=== PATIENT | female | born 1980 | race Caucasian/White ===

== ENCOUNTER 2016-08-24 15:12 | Inpatient (IN) | payer OTHER ==
--- NOTE | 2016-08-24 15:43 | EDPHY ---
H & P Time Seen by Provider: 08/24/16 15:31 HPI/ROS: Chief complaint. high blood pressure after delivery HPI. Patient is a 36-year-old female transferred by ambulance from [place]. delivery 6 days ago. Did have some spinal anesthesia. Right neck pain for 5 days at the patient feels as muscular. Increased blood pressure last night to 180/125. She took labetalol 200 mg this morning at the recommendation of her grinding wheel facer. She also has some pain under the right clavicle. LP was attempted 3 times in [place] without success. Patient has baseline history of hypertension and had been taking lisinopril prior to her and then was switched to labetalol. She had previous preeclampsia with her 1st . She is 2 para 2. She is breast feeding. She denies fever, chest pain, shortness of breath, vomiting or diarrhea. ROS Constitutional. High blood pressure Eyes. no problems with vision ENT. no sore throat, no nasal drainage Cardiovascular. no chest pain Respiratory. no shortness of breath, no cough Abdominal. no abdominal pain, no nausea/vomiting, no diarrhea . no problems urinating MS. Right-sided neck pain Skin. no rash Lymph. no swollen glands Neuro. no headache, no dizziness, no difficulty walking or with speech Past Medical/Surgical History: Hypertension Social History: , nonsmoker, no alcohol Smoking Status: Never smoked Physical Exam: General Appearance: Alert well-developed female mild distress vital signs significant for blood pressure 158/122 Eyes: Pupils equal and round no pallor or injection. ENT, Mouth: Mucous membranes are moist. Respiratory: There are no retractions, lungs are clear to auscultation. Cardiovascular: Regular rate and rhythm. Gastrointestinal: Abdomen is soft and nontender, no masses, bowel sounds normal. Neurological: Awake and alert, sensory and motor exams grossly normal. Skin: Warm and dry, no rashes. Musculoskeletal: Neck is supple. Tenderness to the right side of her neck. Extremities symmetrical, full range of motion. Psychiatric: Patient is oriented X 3, there is no agitation. Constitutional: Initial Vital Signs Temperature (C) 36.7 C 08/24/16 15:23 Heart Rate 93 08/24/16 15:23 Respiratory Rate 16 08/24/16 15:23 Blood Pressure 158/122 H 08/24/16 15:23 O2 Sat (%) 95 08/24/16 15:23 O2 Delivery Mode Room Air Allergies/Adverse Reactions: No Known Allergies Allergy (Unverified 08/24/16 15:22) Home Medications: Medication Instructions Recorded Colace 100 mg PO DAILY 08/24/16 GAS-X Q6 08/24/16 Ibuprofen 600 mg PO Q6 PRN 08/24/16 Labetalol HCl 200 mg PO TID 08/24/16 Oxycodone HCl 08/24/16 Medical Decision Making Procedures: Labetalol 200 mg by mouth Magnesium sulfate 2 g IV ED Course/Re-evaluation: I consulted and discussed case with Dr. Corinna Welch who agrees to the admission and would like the patient brought up to for further evaluation. I discussed this with the patient and her . They expressed understanding and agreement. Patient remains stable in the emergency department Differential Diagnosis: This appears to be preeclampsia. There was concern in [place] for meningitis as the patient had had spinal anesthesia however she has no signs or symptoms of meningitis including no fever and no stiff neck. Blood pressure is high and has been treated in the emergency department. - Data Points Medications Given: Discontinued Medications Magnesium Sulfate (Magnesium Sulf 2 Gm (Premix)) 50 mls @ 50 mls/hr IV EDNOW ONE Stop: 08/24/16 17:09 Last Admin: 08/24/16 16:59 Dose: 50 mls Magnesium Sulfate (Magnesium Sulf 4 Gm (Premix)) 100 mls @ 200 mls/hr IV ONCE ONE Stop: 08/24/16 18:07 Last Admin: 08/24/16 18:21 Dose: 100 mls Labetalol HCl (Trandate) 200 mg PO ONCE ONE Stop: 08/24/16 16:10 Last Admin: 08/24/16 17:59 Dose: Not Given Departure - Departure Disposition: [facility] Inpatient Acute Clinical Impression: Pre-eclampsia added to pre-existing hypertension Condition: Fair
[2016-08-24] MEDS ORDERED: LABETALOL HCL 200 MG TAB PO ONE (16:09)
[2016-08-24] MEDS ORDERED: MAGNESIUM SULF 2 GM/WATER 50 ML IV ONE (16:10)
[2016-08-24 16:48] LABS: % IMMATURE GRANULYOCYTES 0.7 % (0.0-1.1); ABSOLUTE IMMATURE GRANULOCYTES 0.06 10^3/uL (0.00-0.10); ADD DIFF? NO; ADD MORPH? NO; ADD SCAN? NO; ATYPICAL LYMPHOCYTE FLAG 0 (0-99); FRAGMENT RBC FLAG 0 (0-99); HEMATOCRIT 42.6 % (38.0-47.0); HEMOGLOBIN 14.3 g/dL (12.6-16.3); LEFT SHIFT FLG 0 (0-99); LIPEMIA HEMOLYSIS FLAG 80 (0-99); MEAN CELL HEMOGLOBIN 29.5 pg (27.9-34.1); MEAN CELL HEMOGLOBIN CONCENTR. 33.6 g/dL (32.4-36.7); MEAN CELL VOLUME 87.8 fL (81.5-99.8); MEAN PLATELET VOLUME 9.4 fL (8.7-11.7); PLATELET CLUMPS FLAG 10 (0-99); PLATELET COUNT 380 10^3/uL (150-400); RED BLOOD CELL COUNT 4.85 10^6/uL (4.18-5.33); RED CELL DISTRIBUTION WIDTH 12.9 % (11.5-15.2)
[2016-08-24 17:00] LABS: ALANINE AMINOTRANSFERASE 44 IU/L (9-52); ASPARTATE AMINOTRANSFERASE 72 IU/L (14-46); BILIRUBIN,TOTAL 0.8 mg/dL (0.1-1.4); BILIRUBIN-CONJUGATED 0.4 mg/dL (0.0-0.5); BILIRUBIN-UNCONJUGATED 0.4 mg/dL (0.0-1.1); CREATININE 0.7 mg/dL (0.6-1.0); GLOMERULAR FILTRATION RATE > 60; LACTATE DEHYDROGENASE 844 IU/L (313-618); URIC ACID 6.2 mg/dL (2.5-6.8)
[2016-08-24 17:01] VITALS: O2SAT 98
[2016-08-24] MEDS: LR 1,000 ML IV SCH (17:25)
[2016-08-24] MEDS ORDERED: MAGNESIUM SULF 4 GM/WATER 100 ML IV ONE (17:38)
[2016-08-24] MEDS ORDERED: CALCIUM GLUC 10% 1 GM/10 ML VIAL IVP PRN (17:38)
[2016-08-24] MEDS ORDERED: LABETALOL HCL 100 MG TAB ONE (18:01)
[2016-08-24] MEDS: LABETALOL HCL 100 MG TAB PO SCH ×2 (18:24→23:31)
[2016-08-24] MEDS: HYDROCODONE/APAP 5/325 TAB PO PRN (18:39)
[2016-08-24] MEDS: Mag Sulf 500 ML IV SCH (18:55)
--- NOTE | 2016-08-24 19:36 | GHP ---
[f rep st] HISTORY AND PHYSICAL DATE OF ADMISSION: 08/24/2016 ADMISSION DIAGNOSES: 1. preeclampsia. 2. Neck musculoskeletal pain. The patient is a 36-year-old, 2, para 2-0-0-2, who is 6 days postoperative after a repeat lo w transverse section which was done in [place]. 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 Her first was complicated by preeclampsia. She had an elective repeat section at 39 weeks, because of receiving [facility] care at [place], and they do not do vaginal births after sections. The patient's C-se ction was unremarkable, and her initial postoperative course was unremarkable. On postoperative day #1, she developed some right trapezius and shoulder pain which radiated up to her neck. It is repr oducible with palpation. It makes it uncomfortable for her to look down while she is her baby, but she is able to move her neck without significant discomfort. She has been monitoring her blood pressures at home, and her blood pressure last night was 188/125. She followed up with hayes page LICENSING ANALYST today in the office, and was found to have elevated blood pressures. Because of the complaint of neck pain, her LICENSING ANALYST was concerned for possible meningitis, and sent hayes r to the emergency room where she had multiple attempts at a lumbar puncture that were ultimately no t successful. Because of the questionable meningitis, and inability to get the lumbar puncture, the recommendation was patient come down to [facility] for evaluation and repeat a lumbar puncture and possible MRI. The patient was evaluated in the emergency room. Because she is afebri le, does not have an elevated white count, and is able to move her neck freely with the exception of the reproducible pain in one area of her neck, the emergency room physician deemed that she does no t have findings consistent with meningitis. The patient, again, is nontoxic-appearing and smiling a nd laughing, and appears to be quite comfortable until she touches that area of her neck. Of note o n arrival to the emergency room, patient's blood pressure was 155/112. She did have preeclampsia la bs. Remainder of her physical exam was unremarkable. The patient has been transferred up to labor and delivery with a presumptive diagnosis of preeclampsia. Management options have been extensively reviewed with the patient, and she will receive magnesium sulfate for 24 hours, repeats of her labs and acupuncture for her neck. Obviously, if the patient develops any signs consistent o f meningitis, she will be evaluated further. MEDICAL HISTORY: Significant for chronic hypertension. She was on lisinopril prior to , b ut switched to labetalol in . Medical history is otherwise unremarkable. MEDICATIONS: Labetalol 200 mg t.i.d., oxycodone for postoperative pain, ibuprofen, Gas-X and Colace . SURGICAL HISTORY: section x2, removal of lipoma from her shoulder. ALLERGIES: No known drug allergies. SOCIAL HISTORY: Patient denies tobacco or drug use. She does drink alcohol occasionally when not p regnant. FAMILY MEDICAL HISTORY: Significant for chronic hypertension. LICENSING ANALYST HISTORY: Patient has a history of regular cycles. She is a 2, para 2-0-0-2. Her fi rst was a section. was complicated by preeclampsia. Second was uncomplicated, she did not have any preeclampsia. She was on labetalol throughout for elevated blood pressures. She had a scheduled repeat , that spinal was unremarkable for t he second . PHYSICAL EXAM: VITAL SIGNS: Stable. Her blood pressure is 158/122 and 166/112. Her temperature i s 37.7. Her oxygen saturation is 92%, respiratory rate is 17 and her heart rate is 78. GENERAL [place] EARANCE: Nontoxic, alert and oriented x3. Very pleasant. HEART: Rate is irregularly irregular. LUNGS: Clear to auscultation bilaterally. ABDOMEN: Soft, nondistended, nontender. Incision is cl carlos, dry, and intact. MUSCULOSKELETAL: Extremities reveal no calf tenderness or edema. She does h ave 3+ reflexes, DTRs bilaterally. She does have reproducible pain in her right trapezius muscle an d up into her neck. LABS: Her white blood count is 9, her hemoglobin is 14.3, hematocrit is 42.6, her platelets are 380 . Her creatinine is 0.7. Uric acid is 6.2. AST is 72, ALT is 44. LDH is 844. ASSESSMENT AND PLAN: A 36-year-old, 2, para 2-0-0-2, with preeclampsia and neck pain. Initial diagnosis from the physician in [place] was wanting to rule out meningitis. This seems incredibly unlikely given patient is afebrile, nontoxic and did not have an elevated white cou nt, and she is able to move her neck freely. She will be treated with magnesium sulfate for her pos tpartum preeclampsia. Will repeat her preeclampsia labs in the morning, and she will receive acupun cture treatment while in the hospital. We will observe her closely for any signs or symptoms of men ingitis. /[id number]/MODL
--- NOTE | 2016-08-24 19:44 | SOAPPROG ---
SOAP Progress Note Assessment/Plan: Assessment: Acupuncture consult ordered by Dr. Corinna Welch. Patient has bilateral cervical, occipital, and trapezius pain. Pain alternates from side to side. Currently, she has R sided neck pain and L sided trapezius pain. Pain is aggravated by flexion/extension, and side-bending. She is six days post . This is her second child. She has had hypertension for five years, since the delivery of her first child. Treatment: Auricular: [place] Acupuncture (BFA): five points inserted bilaterally to reduce pain. Studied for its affects on the OCC MED PHYSICIAN. Cingular Gyrate [place] 2 [place] Zero Burger Men Local: Bilateral occiput/GB 20 decrease neck pain, decrease blood pressure Right side: HT 3, 4, 7 Relax the trapezius muscle, balance the GB meridian, reduce restriction in side-bending, calm the burger, reduce anxiety ABI 7, 9 Relax the multifidus, balance the BL meridian, reduce restriction in flexion and extension ST 36 increase energy/qi, balance the ST and SP meridians GB 34 empirical point to relax the tendons, balance the GB meridian GB 39, 40, 41 image the neck and shoulder, reduce pain in side-bending, balance the GB meridian BL 65 [place] point of the BL meridian, reduce spinal pain, improve ROM in flexion and extension Left Side: LR 4-7 x 10 erasto (transverse insertion pointed medial along the tibia) Balance the GB meridian, improve side-bending, reduce occipital and trapezius pain LR 3 Relax the scapula, move the blood, decrease swelling and pain from C- section, decrease occipital MASON SP 10 Move the blood, expel lochia, reduce swelling and pain on scar, decrease blood pressure Plan: 08/24/16 19:32 Objective: Vital Signs Temp Pulse Resp BP Pulse Ox 36.4 C 80 14 162/104 H 98 08/24/16 17:00 08/24/16 18:24 08/24/16 17:00 08/24/16 18:24 08/24/16 17:00 Laboratory Results 08/24/16 16:40 08/24/16 16:40 ICD10 Worksheet Patient Problems: Problems Problem Status Onset Pre-eclampsia added to pre-existing hypertension Acute
[2016-08-24] MEDS: DOCUSATE SODIUM 100 MG CAP PO SCH (22:31)
[2016-08-24] MEDS: IBUPROFEN 600 MG TAB PO PRN (22:37)
[2016-08-25] MEDS: HYDROCODONE/APAP 5/325 TAB PO PRN ×6 (00:36→23:33)
[2016-08-25] MEDS: LR 1,000 ML IV SCH (04:45)
[2016-08-25] MEDS: IBUPROFEN 600 MG TAB PO PRN ×3 (06:00→21:32)
[2016-08-25 06:05] LABS: % IMMATURE GRANULYOCYTES 0.6 % (0.0-1.1); ABSOLUTE IMMATURE GRANULOCYTES 0.04 10^3/uL (0.00-0.10); ADD DIFF? NO; ADD MORPH? NO; ADD SCAN? NO; ATYPICAL LYMPHOCYTE FLAG 10 (0-99); FRAGMENT RBC FLAG 0 (0-99); HEMATOCRIT 38.6 % (38.0-47.0); HEMOGLOBIN 12.9 g/dL (12.6-16.3); LEFT SHIFT FLG 0 (0-99); LIPEMIA HEMOLYSIS FLAG 80 (0-99); MEAN CELL HEMOGLOBIN 29.1 pg (27.9-34.1); MEAN CELL HEMOGLOBIN CONCENTR. 33.4 g/dL (32.4-36.7); MEAN CELL VOLUME 86.9 fL (81.5-99.8); PLATELET CLUMPS FLAG 0 (0-99); PLATELET COUNT 349 10^3/uL (150-400); RED BLOOD CELL COUNT 4.44 10^6/uL (4.18-5.33)
[2016-08-25 06:34] LABS: ALANINE AMINOTRANSFERASE 36 IU/L (9-52); ASPARTATE AMINOTRANSFERASE 55 IU/L (14-46); CREATININE 0.7 mg/dL (0.6-1.0); GLOMERULAR FILTRATION RATE > 60; LACTATE DEHYDROGENASE 620 IU/L (313-618); MAGNESIUM 4.5 mg/dL (1.6-2.3); URIC ACID 6.3 mg/dL (2.5-6.8)
[2016-08-25] MEDS: LABETALOL HCL 100 MG TAB PO SCH ×3 (08:56→21:32)
[2016-08-25] MEDS ORDERED: LABETALOL HCL 50 MG/10 ML SYR IVP ONE (09:35)
--- NOTE | 2016-08-25 09:37 | OBPROG ---
OBG Progress Note Assessment/Plan: Assessment: 1) s/p R-LTCS POD # 7 - pt is stable 2) preeclampsia - currently on mag sulfate 3) Neck pain 4) Chronic HTN Plan: BPs are not well controlled yet, did not receive 0900 dose yet. Pt is currently on Labetalol 300 mg TID; will give IV Labetalol if BPs > 165/105 Pt has chronic HTN and was on Lisinopril with well controlled BPs prior to , but no studies done in , will hold off on restarting. Continue mag sulfate x 24 hrs; continue q 2hr mag checks PIH labs are improving, will recheck in am / Will try massage, heat/ice for neck pain, suspect tight muscles; s/p acupuncture with some relief Will continue to closely monitor 08/25/16 09:50 Subjective: Pt seen and examined. She feels groggy and dizzy while in bed. She is conversing with her family members. She woke up with a MASON but states better after [place] and cup of coffee. Denies any visual changes or RUQ/epigastric pain. She states shoulder, trapezius pain is improved, s/p acupuncture but still notes some neck pain. She is able to move her neck freely side to side. Pain is well controlled, danial regular diet, voiding without difficulty, BM yesterday. Mild lochia. Denies any f/c/n/v/CP or SOB. She is without difficulty. Objective: 08/25/16 05:50 08/25/16 05:50 Uric Acid 6.3 mg/dL (2.5-6.8) 08/25/16 05:50 Total Bilirubin 0.8 mg/dL (0.1-1.4) 08/24/16 16:40 Conjugated Bilirubin 0.4 mg/dL (0.0-0.5) 08/24/16 16:40 Unconjugated Bilirubin 0.4 mg/dL (0.0-1.1) 08/24/16 16:40 AST 55 IU/L (14-46) H 08/25/16 05:50 ALT 36 IU/L (9-52) 08/25/16 05:50 Lactate Dehydrogenase 620 IU/L (313-618) H 08/25/16 05:50 Temp Pulse Resp BP Pulse Ox 36.4 C 71 14 153/97 H 98 08/24/16 17:00 08/25/16 08:56 08/24/16 17:00 08/25/16 08:56 08/24/16 17:00 Uterine Position/Fundal Height: Umbilicus -2 Uterine Tone: Firm - Physical Exam General Appearance: WD/WN, alert, no apparent distress Neck: full range of motion, normal inspection Respiratory: lungs clear, normal breath sounds Cardiac/Chest: regular rate, rhythm Abdomen: normal bowel sounds, non-tender, soft, incision (C/D/I with steri strips) Genitourinary: lochia (mild) Extremities: non-tender, normal inspection, other (no clonus) DTR- Lower Extremities: Knee (R): 2+, Knee (L): 2+ Neuro/Psych: alert, normal mood/affect, oriented x 3 ICD10 Worksheet Patient Problems: Problems Problem Status Onset Pre-eclampsia added to pre-existing hypertension Acute
[2016-08-25] MEDS ORDERED: BISACODYL 10 MG SUPP PR PRN (09:56)
[2016-08-25] MEDS ORDERED: MAGNESIUM HYDROXIDE 30 ML UDCUP PO PRN (09:56)
[2016-08-25] MEDS ORDERED: LACTULOSE 20 GM/30 ML UDCUP PO PRN (09:56)
[2016-08-25] MEDS ORDERED: POLYETHYLENE GLYCOL 3350 17 GM PKT PO PRN (09:56)
[2016-08-25] MEDS ORDERED: LABETALOL HCL 5 MG/ML 20 ML MDV IVP ONE (10:00)
[2016-08-25] MEDS: DOCUSATE SODIUM 100 MG CAP PO SCH ×2 (13:06→23:34)
[2016-08-25] MEDS: Mag Sulf 500 ML IV SCH (14:49)
[2016-08-26] MEDS: SENNOSIDES/DOCUSATE SODIUM TAB PO SCH ×2 (00:02→09:36)
[2016-08-26] MEDS: HYDROCODONE/APAP 5/325 TAB PO PRN ×4 (03:17→16:25)
[2016-08-26 06:20] LABS: % IMMATURE GRANULYOCYTES 0.4 % (0.0-1.1); ABSOLUTE IMMATURE GRANULOCYTES 0.03 10^3/uL (0.00-0.10); ADD DIFF? NO; ADD MORPH? NO; ADD SCAN? NO; ATYPICAL LYMPHOCYTE FLAG 10 (0-99); FRAGMENT RBC FLAG 0 (0-99); HEMATOCRIT 38.1 % (38.0-47.0); HEMOGLOBIN 12.8 g/dL (12.6-16.3); LEFT SHIFT FLG 0 (0-99); LIPEMIA HEMOLYSIS FLAG 80 (0-99); MEAN CELL HEMOGLOBIN 29.3 pg (27.9-34.1); MEAN CELL HEMOGLOBIN CONCENTR. 33.6 g/dL (32.4-36.7); MEAN CELL VOLUME 87.2 fL (81.5-99.8); MEAN PLATELET VOLUME 8.8 fL (8.7-11.7); PLATELET CLUMPS FLAG 0 (0-99); PLATELET COUNT 351 10^3/uL (150-400); RED BLOOD CELL COUNT 4.37 10^6/uL (4.18-5.33); RED CELL DISTRIBUTION WIDTH 12.9 % (11.5-15.2)
[2016-08-26 06:39] LABS: ALANINE AMINOTRANSFERASE 28 IU/L (9-52); ASPARTATE AMINOTRANSFERASE 55 IU/L (14-46); BILIRUBIN,TOTAL 0.6 mg/dL (0.1-1.4); BILIRUBIN-CONJUGATED 0.4 mg/dL (0.0-0.5); BILIRUBIN-UNCONJUGATED 0.2 mg/dL (0.0-1.1); CREATININE 0.6 mg/dL (0.6-1.0); GLOMERULAR FILTRATION RATE > 60; LACTATE DEHYDROGENASE 645 IU/L (313-618); URIC ACID 5.1 mg/dL (2.5-6.8)
[2016-08-26] MEDS: IBUPROFEN 600 MG TAB PO PRN ×2 (07:23→16:04)
[2016-08-26] MEDS: LABETALOL HCL 100 MG TAB PO SCH (09:37)
[2016-08-26 09:39] VITALS: RESP 17; TEMP 97.3
[2016-08-26] MEDS: DOCUSATE SODIUM 100 MG CAP PO SCH (09:39)
[2016-08-26] MEDS ORDERED: LABETALOL HCL 100 MG TAB PO ONE (11:00)
--- NOTE | 2016-08-26 11:12 | OBPROG ---
OBG Progress Note Assessment/Plan: Assessment: 36 y/o POD #8 s/p Rpt LTCS with Chronic HTN superimposed with pre-eclampsia Plan: BP is still not optimally controlled on 300 mg TID will increase to 400 mg TID and hopefully d/c home later today for close follow-up in [place]. 08/26/16 11:14 Subjective: Pt is feeling better today. She denies MASON, scotomata or abdominal pain. Her incisional pain is well controlled with [place] and Ibuprofen. She is ambulating , voiding and has min lochia. Breast feeding is going well. Her neck pain has improved but she continues to have some musculoskeletal pain. Objective: 08/26/16 06:00 08/26/16 06:00 Uric Acid 5.1 mg/dL (2.5-6.8) 08/26/16 06:00 Total Bilirubin 0.6 mg/dL (0.1-1.4) 08/26/16 06:00 Conjugated Bilirubin 0.4 mg/dL (0.0-0.5) 08/26/16 06:00 Unconjugated Bilirubin 0.2 mg/dL (0.0-1.1) 08/26/16 06:00 AST 55 IU/L (14-46) H 08/26/16 06:00 ALT 28 IU/L (9-52) 08/26/16 06:00 Lactate Dehydrogenase 645 IU/L (313-618) H 08/26/16 06:00 Temp Pulse Resp BP Pulse Ox 36.3 C 74 17 149/92 H 98 08/26/16 09:37 08/26/16 09:37 08/26/16 09:37 08/26/16 10:04 08/24/16 17:00 Uterine Position/Fundal Height: Umbilicus -2 Uterine Tone: Firm - Physical Exam General Appearance: WD/WN, alert, no apparent distress Neck: non-tender, full range of motion, supple Respiratory: chest non-tender, lungs clear, normal breath sounds Cardiac/Chest: regular rate, rhythm Abdomen: normal bowel sounds ICD10 Worksheet Patient Problems: Problems Problem Status Onset Pre-eclampsia added to pre-existing hypertension Acute
[2016-08-26] MEDS ORDERED: LABETALOL HCL 100 MG TAB PO SCH (16:00)
[2016-08-26 16:02] VITALS: BP 154/99; PULSE 84
== END 2016-08-26 18:05 | disposition home or self-care (01) | DRG 776 ==
LOC: FLD 16:54 → OBSVTOIN 08-25 10:10
PROVIDERS: ADMIT Obstetrics & Gynecology; ATTEND Obstetrics & Gynecology
DX: O11.5 Pre-existing hypertension with pre-eclampsia, complicating the puerperium (principal); O26.899 Other specified pregnancy related conditions, unspecified trimester; M54.2 Cervicalgia
CPT/HCPCS: 96374; G0463; J0610; J3475